=== PATIENT | male | born 1980 | race Caucasian/White ===

== ENCOUNTER 2017-01-28 16:23 | Emergency (ER) | payer OTHER ==
[2017-01-28 17:35] VITALS: BP 115/76
--- NOTE | 2017-01-28 17:40 | UC ---
Head Injury HPI - HPI Summary HPI Summary: 36 male presents with complaints of being hit in the face with a baseball . Today complains of birdge of nose being swollen and painful. Also states he feels as though his left nostril is clogged and something is stuck in it. Patient has not taken any medication for his symptoms. Denies PMHx. Denies bleeding, bruising, hit in head, LOC, and any other injuries. No difficulty breathing. - History Of Current Complaint Chief Complaint: UCHeadInjury Stated Complaint: HIT IN HEAD WITH BALL 3 DAYS AGO Hx Obtained From: Patient Mechanism Of Injury: hit in face with baseball Onset/Duration: Sudden Onset, Lasting Days - 2 Severity Currently: Mild Severity Initially: Moderate Pain Intensity: 0 - when sitting there Pain Scale Used: 0-10 Numeric Character: Pressure Aggravating Factor(s): Nothing Alleviating Factor(s): Nothing Associated Signs And Symptoms: Positive: Negative - Allergies/Home Medications Allergies/Adverse Reactions: Allergies Allergy/AdvReac Type Severity Reaction Status Date / Time BEES Allergy Swelling Uncoded 01/28/17 17:27 Home Medications: Home Medications Acetaminophen TAB* [Tylenol TAB*] 650 mg PO Q4H PRN 01/28/17 [History Confirmed 01/28/17] PMH/Surg Hx/FS Hx/Imm Hx - Additional Past Medical History Additional PMH: Denies HTN Asthma and DM, none - Surgical History Surgical History: Yes Surgery Procedure, Year, and Place: [id number] - Family History Known Family History: Positive: None - Social History Alcohol Use: Occasionally Substance Use Type: None Smoking Status (MU): Heavy Every Day Tobacco Smoker Type: Cigarettes, Smokeless Tobacco Amount Used/How Often: 1 PPD Length of Time of Smoking/Using Tobacco: 1 YR Have You Smoked in the Last Year: Yes When Did the Patient Quit Smoking/Using Tobacco: 2012 Household Exposure Type: Cigarettes - Immunization History Vaccination Up to Date: Yes Review of Systems Constitutional: Negative Skin: Negative Eyes: Negative ENT: Other - nasal bridge pain, swelling Respiratory: Negative Cardiovascular: Negative Neurovascular: Negative Musculoskeletal: Arthralgia - nose Neurological: Negative All Other Systems Reviewed And Are Negative: Yes Physical Exam Triage Information Reviewed: Yes Appearance: Well-Appearing, No Pain Distress, Well-Nourished Vital Signs: Initial Vital Signs Temp 99.5 F 01/28/17 17:28 Pulse 75 01/28/17 17:28 Resp 16 01/28/17 17:28 BP 115/76 01/28/17 17:28 Pulse Ox 96 01/28/17 17:28 Vital Signs Reviewed: Yes Eyes: Positive: Conjunctiva Clear ENT: Positive: Normal ENT inspection, Hearing grossly normal, Pharynx normal, TMs normal, Other: - no raccon eyes or battles signs, no eccymosis. minimal edema noted at bridge of proximal nose. tender to palpation. no crepitus, step off or mis alignment. no sign of septal hematoma or dried blood in nares. No FB in either nare. Moving air equally from both nares. No other facial bone tenderness on palpation or abnormailities. Neck: Positive: Supple, Nontender, No Lymphadenopathy Respiratory: Positive: Chest non-tender, Lungs clear, Normal breath sounds, No respiratory distress, No accessory muscle use. Negative: Crackles, Rhonchi, Wheezing Cardiovascular: Positive: RRR, No Murmur, Pulses Normal Musculoskeletal: Positive: Strength Intact, ROM Intact, No Edema Neurological: Positive: Alert - sensation intact, Muscle Tone Normal Psychological Exam: Normal Skin Exam: Normal Skin: Positive: Other - minimal edema noted at bridge of nose Diagnostics - Radiology maxillofacial CT Xray Interpretation: No Acute Changes - SOFT TISSUE SWELLING OVER THE NASAL BRIDGE, OTHERWISE NEGATIVE. Radiology Interpretation Completed By: Radiologist Head Injury Course/Dx - Course Course Of Treatment: Ct ordered and negative for fracture. Given ibuprofen while in office, patient states he his in no pain unless he touches his nose. Educated the FB sensation is possibly due to the inflammation and swelling of nasal bridge, suffering a contusion for trauma. Treat with NSAIDs, flonase and ice. Also to rest and not irritate nose. Decrease swelling to see if symptoms improve. No urget/emergent cause of symtpoms. Aware of worsening signs and symptoms. Follow up with PCP. - Differential Dx/Diagnosis Differential Diagnosis/HQI/PQRI: Contusion, Nasal Fracture, Orbital Fracture, Zygomatic Fracture Provider Diagnoses: nasal bridge contusion, edema of nasal bridge Discharge - Discharge Plan Condition: Stable Disposition: HOME Prescriptions: Fluticasone NASAL SPRAY 50MCG* [Flonase NASAL SPRAY 50MCG*] 2 spray BOTH NARES DAILY #1 btl Ibuprofen TAB* [Motrin TAB* 600 MG] 600 mg PO Q6H PRN #30 tab PRN Reason: Pain Patient Education Materials: Nasal Contusion (ED) Referrals: [facility] [place] [facility] [Outside] No Primary Care Phys,NOPCP [Primary Care Provider] - Additional Instructions: Take prescribed ibuprofen as directed for the next 5 days with food to help with pain and inflammation. Flonase nasal spray to clear airways. Ice the nose multiple times daily to help with swelling. If symptoms worsen, persist or new symptoms develop please seek medical attention promptly. Follow up with PCP.
[2017-01-28] MEDS ORDERED: Ibuprofen TAB* 600 MG PO ONE (17:55)
--- NOTE | 2017-01-28 18:18 | RAD ---
INDICATION: Injury to nasal bone. Request for maxillofacial CT COMPARISON: None TECHNIQUE: Axial source images were acquired from the vertex of the mandible through the orbits. Coronal and sagittal reconstructed images were acquired. FINDINGS: Bones: There is no acute facial bone fracture. Orbits: The globes and intraconal structures appear intact. The optic nerves are symmetric. Extraocular muscles appear normal. There is no intraconal inflammatory change or retrobulbar mass.. Paranasal sinuses: The paranasal sinuses are clear. Brain: There are no acute abnormalities of the visualized brain parenchyma. Soft tissues: There is soft tissue swelling over the nasal bridge Other: None The visualized soft tissue elements about the neck appear normal. IMPRESSION: SOFT TISSUE SWELLING OVER THE NASAL BRIDGE, OTHERWISE NEGATIVE.
== END 2017-01-28 18:32 | disposition home or self-care (01) ==
LOC: UCCORT 16:23
DX: S00.33XA Contusion of nose, initial encounter (principal); W21.03XA Struck by baseball, initial encounter; Y93.9 Activity, unspecified; Y92.9 Unspecified place or not applicable; Z91.030 Bee allergy status; Z72.0 Tobacco use
CPT/HCPCS: 70486; 99212; A9270-GY; G0463

== ENCOUNTER 2018-03-22 21:35 | Emergency (ER) | payer OTHER ==
[2018-03-22 21:44] VITALS: BP 137/85
--- NOTE | 2018-03-22 22:01 | ED ---
Throat Pain/Nasal Congestion - HPI Summary HPI Summary: 37 yr old male with pain to the nose and midface. Onset over the past week. Denies fever chills, nasal drainage. He does a lot of diving, but does not recall any pain after hitting water. Denies nose bleed. Denies fever, chills, headache. - History of Current Complaint Chief Complaint: UCGeneralIllness Time Seen by Provider: 03/22/18 21:53 - Allergies/Home Medications Allergies/Adverse Reactions: Allergies Allergy/AdvReac Type Severity Reaction Status Date / Time BEES Allergy Swelling Uncoded 03/22/18 21:41 Home Medications: Home Medications NK [No Home Medications Reported] 03/22/18 [History Confirmed 03/22/18] PMH/Surg Hx/FS Hx/Imm Hx Endocrine/Hematology History: Denies: Hx Diabetes Cardiovascular History: Denies: Hx Hypertension, Hx Pacemaker/ICD Respiratory History: Reports: Hx Asthma History: Denies: Hx Dialysis, Hx Renal Disease Sensory History: Reports: Hx Contacts or Glasses - GLASSES Denies: Hx Hearing Aid Opthamlomology History: Reports: Hx Contacts or Glasses - GLASSES Neurological History: Reports: Hx Headaches - NO TREATMENT FOR Psychiatric History: Denies: Hx Panic Disorder - Surgical History Surgery Procedure, Year, and Place: [id number] Hx Anesthesia Reactions: No Infectious Disease History: No Infectious Disease History: Denies: Traveled Outside the [place] in Last 30 Days - Family History Known Family History: Positive: None - Social History Alcohol Use: None Substance Use Type: Reports: None Smoking Status (MU): Heavy Every Day Tobacco Smoker Type: Cigarettes, Smokeless Tobacco Amount Used/How Often: 1/2 PPD Length of Time of Smoking/Using Tobacco: 1 YR Have You Smoked in the Last Year: Yes Review of Systems Constitutional: Negative Positive: Other - no eye pain Positive: Other - nasal pain Positive: Other - no rash to the face. . Negative: Rash All Other Systems Reviewed And Are Negative: Yes Physical Exam Triage Information Reviewed: Yes Vital Signs On Initial Exam: Initial Vitals Temp Pulse Resp BP Pulse Ox 99.3 F 96 18 137/85 98 03/22/18 21:41 03/22/18 21:41 03/22/18 21:41 03/22/18 21:41 03/22/18 21:41 Vital Signs Reviewed: Yes Appearance: Positive: Well-Appearing, No Pain Distress Skin: Positive: Warm, Skin Color Reflects Adequate Perfusion Head/Face: Positive: Normal Head/Face Inspection Eyes: Positive: EOMI ENT: Positive: Normal ENT inspection, Pharynx normal, Other - he is tender over the nasal bones with mild STS. No cellulitis or rash.. Negative: Nasal congestion, Nasal drainage, Muffled voice Neck: Positive: Supple, Nontender Respiratory/Lung Sounds: Positive: Clear to Auscultation, Breath Sounds Present Cardiovascular: Positive: RRR. Negative: Murmur Abdomen Description: Positive: Nontender Musculoskeletal: Positive: Strength/ROM Intact Neurological: Positive: Sensory/Motor Intact, Alert, Oriented to Person Place, Time, CN Intact II-III, Normal Gait, Speech Normal Psychiatric: Positive: Normal - [place] Coma Scale Best Eye Response: 4 - Spontaneous Best Motor Response: 6 - Obeys Commands Best Verbal Response: 5 - Oriented Coma Scale Total: 15 Diagnostics - Vital Signs Vital Signs Temp Pulse Resp BP Pulse Ox 03/22/18 21:41 99.3 F 96 18 137/85 98 - Laboratory Lab Statement: Any lab studies that have been ordered have been reviewed, and results considered in the medical decision making process. EENT Course/Dx - Course Course Of Treatment: 37 yr old with midface pain, and nasal pain. Unknown etiology but tender. He will go to the ER for Maxillo facial CT scan and further evaluation. - Diagnoses Provider Diagnoses: Nasal pain, Hypertension Discharge - Sign-Out/Discharge Documenting (check all that apply): Patient Departure - Discharge Plan Condition: Good Disposition: HOME-RECOMMEND TO ED Patient Education Materials: Nasal Fracture (ED), Hypertension (ED) Referrals: [facility] [[place]] No Primary Care Phys,NOPCP [Primary Care Provider] - Additional Instructions: You need to go to the ER where proper imaging of your maxillo facial area can be done to rule out fractures, infection in your midface. - Billing Disposition and Condition Condition: GOOD Disposition: Home-Recommend to ED
== END 2018-03-22 22:06 | disposition home health service (06) ==
LOC: UCCORT 21:35
DX: J34.89 Other specified disorders of nose and nasal sinuses (principal); I10 Essential (primary) hypertension; F17.290 Nicotine dependence, other tobacco product, uncomplicated
CPT/HCPCS: 99212; G0463

== ENCOUNTER 2019-11-20 15:51 | Emergency (ER) | payer OTHER ==
--- NOTE | 2019-11-20 16:15 | UC ---
Respiratory Complaint HPI - HPI Summary HPI Summary: Pt presents with c/o cough, nasal congestion, "trickle in throat" PND X 2 days. - History of Current Complaint Chief Complaint: UCRespiratory Stated Complaint: COUGH, CONGESTION, NASAL DRIP Time Seen by Provider: 11/20/19 15:53 Hx Obtained From: Patient Onset/Duration: Sudden Onset, Lasting Days, Still Present Timing: Intermittent Episodes Severity Initially: Mild Severity Currently: Mild Pain Intensity: 0 Character: Cough: Nonproductive Aggravating Factors: Recumbent Position Alleviating Factors: Nothing Associated Signs And Symptoms: Positive: Nasal Congestion Related History: Seasonal Allergies - Risk Factors Pulmonary Embolism Risk Factors: Negative Cardiac Risk Factors: Negative Pseudomonas Risk Factors: Negative Tuberculosis Risk Factors: Negative - Allergies/Home Medications Allergies/Adverse Reactions: Allergies Allergy/AdvReac Type Severity Reaction Status Date / Time BEES Allergy Swelling Uncoded 11/20/19 15:55 Home Medications: Home Medications Blood Pressure Med 1 tab DAILY 11/20/19 [History Confirmed 11/20/19] Fexofenadine (NF) [Elayne 180 (NF)] 180 mg PO DAILY #20 tab 11/20/19 [Rx] Oxymetazoline 0.05% NASAL SPR* [Afrin 0.05% NASAL SPRAY*] 1 spray NASAL Q12H 4 Days #1 btl 11/20/19 [Rx] PMH/Surg Hx/FS Hx/Imm Hx Previously Healthy: Yes - Surgical History Surgical History: Yes Surgery Procedure, Year, and Place: [id number]; reverse vasectomy - Family History Known Family History: Positive: Cardiac Disease - Social History Occupation: Employed Full-time Lives: With Family Alcohol Use: Rare Substance Use Type: None Smoking Status (MU): Heavy Every Day Tobacco Smoker Type: Cigarettes, Smokeless Tobacco Amount Used/How Often: 1/2 PPD Length of Time of Smoking/Using Tobacco: 1 YR Have You Smoked in the Last Year: Yes When Did the Patient Quit Smoking/Using Tobacco: 2012 Household Exposure Type: Cigarettes - Immunization History Vaccination Up to Date: Yes Review of Systems All Other Systems Reviewed And Are Negative: Yes Constitutional: Positive: Negative Skin: Positive: Negative Eyes: Positive: Negative ENT: Positive: Sinus Congestion, Other - PND, nasal congestion Respiratory: Positive: Cough Cardiovascular: Positive: Negative Gastrointestinal: Positive: Negative Genitourinary: Positive: Negative Motor: Positive: Negative Neurovascular: Positive: Negative Musculoskeletal: Positive: Negative Neurological/Mental Status: Positive: Negative Psychological: Positive: Negative Is Patient Immunocompromised?: No Physical Exam Triage Information Reviewed: Yes Appearance: Well-Appearing Vital Signs: Initial Vital Signs Temp 98.4 F 11/20/19 15:55 Pulse 84 11/20/19 15:55 Resp 16 11/20/19 15:55 BP 145/89 11/20/19 15:55 Pulse Ox 99 11/20/19 15:55 Vital Signs Reviewed: Yes Eye Exam: Normal ENT: Positive: Nasal congestion Dental Exam: Normal Neck exam: Normal Respiratory: Positive: No respiratory distress Musculoskeletal Exam: Normal Neurological Exam: Normal Psychological Exam: Normal Skin Exam: Normal Respiratory Course/Dx - Course Course Of Treatment: PE limited to COVID precautions. PPE worn during PE by provider - Differential Dx/Diagnosis Differential Diagnosis/HQI/PQRI: Bronchitis, Influenza Provider Diagnosis: PND (post-nasal drip), Cough Discharge ED - Sign-Out/Discharge Documenting (check all that apply): Patient Departure All imaging exams completed and their final reports reviewed: No Studies - Discharge Plan Condition: Stable Disposition: HOME Prescriptions: Fexofenadine (NF) [Elayne 180 (NF)] 180 mg PO DAILY #20 tab Oxymetazoline 0.05% NASAL SPR* [Afrin 0.05% NASAL SPRAY*] 1 spray NASAL Q12H 4 Days #1 btl Patient Education Materials: Acute Cough (ED) Forms: COVID-19 Tested & Isolation Referrals: [facility] [place] [Outside] - If Needed No Primary Care Phys,NOPCP [Primary Care Provider] - - Billing Disposition and Condition Condition: STABLE Disposition: Home - Attestation Statements Provider Attestation: This patient was not seen by me. I was available for consult. Chart review. LULU
[2019-11-20 16:16] VITALS: BP 145/89
--- NOTE | 2019-11-25 07:39 | UC ---
- Progress Note Progress Note: Your coronavirus test was negative You no longer need to self-quarantine Continue to social distance If your symptoms persist or worsen, recommend follow up with your PCP or return to urgent care Course/Dx - Diagnoses Provider Diagnoses: PND (post-nasal drip), Cough Discharge ED - Sign-Out/Discharge Documenting (check all that apply): Post-Discharge Follow Up All imaging exams completed and their final reports reviewed: No Studies - Discharge Plan Condition: Stable Disposition: HOME Prescriptions: Fexofenadine (NF) [Elayne 180 (NF)] 180 mg PO DAILY #20 tab Oxymetazoline 0.05% NASAL SPR* [Afrin 0.05% NASAL SPRAY*] 1 spray NASAL Q12H 4 Days #1 btl Patient Education Materials: Acute Cough (ED) [place]errals: [facility] [place] [facility] [place] [facility] [place]] - If Needed No Primary Care Phys,NOPCP [Primary Care Provider] - - Billing Disposition and Condition Condition: STABLE Disposition: Home
== END 2019-11-20 16:39 | disposition home or self-care (01) ==
LOC: UCCORT 15:51
DX: R05 Cough (principal); R09.82 Postnasal drip; R09.81 Nasal congestion; Z20.828 Contact with and (suspected) exposure to other viral communicable diseases; Z91.030 Bee allergy status; Z87.891 Personal history of nicotine dependence
CPT/HCPCS: 99212; G0463; U0002